=== PATIENT | male | born 1975 | race Caucasian/White ===

== ENCOUNTER 2016-09-26 05:31 | Day surgery (SDC) | payer MEDICAID ==
[2016-09-25 08:55] LABS: HEMATOCRIT 44.8 % (42.0-54.0); HEMOGLOBIN 15.4 g/dL (13.5-17.5); MCH 29.8 pg (26.0-34.0); MCHC 34.4 g/dL (31.0-37.0); MCV 86.8 fL (80.0-100.0); MEAN PLATELET VOLUME 10.6 fL (7.4-10.4); RBC 5.16 10x6/uL (4.20-6.10); RDW 13.5 % (11.5-14.5); WBC 8.6 10x3/uL (4.8-10.8)
[2016-09-25 09:16] LABS: CALC OSMOLALITY 274 mosm/kg (275-300); CALCIUM 9.1 mg/dL (8.5-10.1); CHLORIDE - SERUM 99 mmol/L (98-107); GLUCOSE 138 mg/dL (74-106); POTASSIUM - SERUM 3.6 mmol/L (3.5-5.1); SODIUM 136 mmol/L (136-145); UREA NITROGEN 14 mg/dL (7-18); eGFR NON AFRICAN AMERICAN 88 mL/min (90-120)
[~2016-09-26] VITALS: Ht 188 cm; Wt 117.9 kg
[~2016-09-26 05:31] MED LIST: GLUCOPHAGE500 MG PO; KLONOPIN1 MG PO; OMEPRAZOLE20 M1 PO; PERCOCET 10/3251 TA1 PO
[2016-09-26 08:52] VITALS: BP 150/82; Ht 188 cm; Wt 117.9 kg
[2016-09-26] MEDS ORDERED: DEMEROL50 MG PO (10:53)
--- NOTE | 2016-09-26 11:11 | NUR ---
VANCOMYCIN 1GM INFUSING. SLING APPLIED TO ARM IN PACU. PT OFFERED PAIN MEDICATION, PT REFUSED. STATED "NOT THAT BAD"
--- NOTE | 2016-09-26 15:39 | NUR ---
1215 IV DC WITH CATHER TIP INTACT
--- NOTE | 2016-09-30 14:52 | OP ---
PATIENT NAME: YOANNA FAJARDO MEDICAL RECORD: [id number] :76 LOCATION:[facility] ADMISSION DATE: SURGEON: SWAPNIL MCGRATH MD DATE OF OPERATION: 09/26/2016 PREOPERATIVE DIAGNOSES: Rotator cuff tear of the left shoulder with impingement syndrome and acromioclavicular arthritis. POSTOPERATIVE DIAGNOSES: Rotator cuff tear of the left shoulder with impingement syndrome and acromioclavicular arthritis. PROCEDURES: 1. Arthroscopic rotator cuff repair of the left shoulder. 2. Arthroscopic distal clavicle excision of the left shoulder. 3. Arthroscopic subacromial decompression, acromioplasty and bursectomy of the left shoulder. SURGEON: Swapnil Mcgrath MD ANESTHESIA: General. INTRAOPERATIVE COMPLICATIONS: None. SUMMARY OF PATHOLOGIC FINDINGS: As predicted with the MRI, the patient had a rotator cuff tear of the supraspinatus tendon distal aspect. Furthermore, the patient had a downward sloping acromion with excoriation of the coracoacromial ligament as well as acromioclavicular arthritis. OPERATIVE SUMMARY IN DETAIL: After obtaining the appropriate preoperative orthopedic surgical consents as well as anesthetic consultation, evaluation and clearance, the patient was brought to the operating room and placed on the operating table in supine position. After adequate general laryngeal mask was administered, the patient was placed in a right lateral decubitus position. All pressure points were well padded to include down leg peroneal pad as well as axillary roll. The patient was held firmly to the operating room table using the vacuum pack suction system. Left upper extremity and shoulder were prepped and draped in a routine sterile fashion. The arm was held in the Arthrex traction boom at 30 degrees of forward flexion, 30 degrees of abduction with 10 pounds of traction laterally. Arthroscopy was established in the glenohumeral joint from a posterior portal. Anterior portal was established in the anterior safe interval. Diagnostic arthroscopy did show the above findings. Attention was at this point turned to the subacromial space. Accessory lateral portal was created. [place] tissue ablation system was utilized to denude the undersurface of the acromion of all soft tissue elements and released coracoacromial ligament. Barrel bur was then used to perform acromioplasty at the level of the acromioclavicular joint. At this point, through a separate arthroscopic portal anterior, distal clavicle was excised 1 cm through a separate incision. Having completed this, attention then turned to the rotator cuff tear. Debridement decortication was carried out. A single #2 FiberTape was placed in an inverted mattress style suture. It was anchored laterally with a 4.75 SwiveLock from Arthrex. Having completed this, arthroscopy portals were closed in routine interrupted fashion using 4-0 Prolene. Sterile dressings were applied. The patient was awakened and taken to the recovery room in stable condition. All final needle and sponge counts were correct. OPERATIVE REPORT [id number] TANAYOANNARoel ART TRANSINT:[id number] Voice Confirmation ID: [id number] DOCUMENT ID: [id number] ALCIDES OSBORN, SWAPNIL RUBIO at 1452 CC: [id number] DICTATION DATE: 09/26/16 1057 LICENSED OPTICIAN: 09/26/16 1114 [facility] 09/26/[address] [address]
== END 2016-09-26 12:30 | disposition home or self-care (01) ==
LOC: D.OPS 05:31 → D.PAN 09:15 → D.OPS 10:15 → D.PAN 11:15 → D.OPS 12:30
PROVIDERS: Anesthesiology
DX: M75.102 Unspecified rotator cuff tear or rupture of left shoulder, not specified as traumatic (principal); M75.42 Impingement syndrome of left shoulder; M13.812 Other specified arthritis, left shoulder

== ENCOUNTER → 2017-01-14 15:04 | Outpatient (CLI) | payer MEDICAID ==
[2016-09-26 08:52] VITALS: BMI 33.4
[~2017-01-14 15:04] MED LIST changes: +DEMEROL50 MG PO
== END | disposition home or self-care (01) ==
LOC: D.US 01-10 13:30
DX: N50.89 Other specified disorders of the male genital organs (principal)

== ENCOUNTER → 2017-01-17 10:42 | Outpatient (CLI) | payer MEDICAID ==
[2016-09-26 08:52] VITALS: BMI 33.4
== END | disposition home or self-care (01) ==
LOC: D.LAB 10:15 → D.NM 10:30 → D.LAB 10:42
DX: M54.6 Pain in thoracic spine (principal)

== ENCOUNTER → 2017-04-24 13:20 | Outpatient (CLI) | payer MEDICAID ==
[2016-09-26 08:52] VITALS: BMI 33.4
== END | disposition home or self-care (01) ==
LOC: D.MRI 04-15 15:00
DX: M51.9 Unspecified thoracic, thoracolumbar and lumbosacral intervertebral disc disorder (principal)

== ENCOUNTER 2017-05-02 22:17 | Emergency (ER) | payer MEDICAID ==
[2016-09-26 08:52] VITALS: BMI 33.4
== END 2017-05-03 01:23 | disposition home or self-care (01) ==
LOC: D.ER 22:17
DX: M54.6 Pain in thoracic spine (principal); A69.20 Lyme disease, unspecified; G40.909 Epilepsy, unspecified, not intractable, without status epilepticus; M51.26 Other intervertebral disc displacement, lumbar region; F17.200 Nicotine dependence, unspecified, uncomplicated

== ENCOUNTER 2018-03-03 19:26 | Emergency (ER) | payer MEDICAID ==
[~2018-03-03] VITALS: Ht 188 cm; Wt 104.5 kg
[2018-03-03 19:36] VITALS: Ht 188 cm; Wt 104.5 kg
[2018-03-03] MEDS ORDERED: NORVASC10 MG PO (19:38)
[2018-03-03] MEDS ORDERED: VOLTAREN75 MG PO (21:53)
[2018-03-03] MEDS ORDERED: MEDROL DOSE PACK4 MG PO (21:53)
[2018-03-03 22:21] VITALS: BP 132/89
== END 2018-03-03 22:21 | disposition home or self-care (01) ==
LOC: D.ER 19:26
DX: L25.9 Unspecified contact dermatitis, unspecified cause (principal); S39.012A Strain of muscle, fascia and tendon of lower back, initial encounter; X58.XXXA Exposure to other specified factors, initial encounter; Y93.89 Activity, other specified; Y92.89 Other specified places as the place of occurrence of the external cause; E11.9 Type 2 diabetes mellitus without complications; I10 Essential (primary) hypertension; F17.200 Nicotine dependence, unspecified, uncomplicated

== ENCOUNTER 2018-06-18 05:20 | Day surgery (SDC) | payer MEDICARE ==
[2018-06-16 11:47] LABS: HEMATOCRIT 46.1 % (42.0-54.0); HEMOGLOBIN 16.3 g/dL (13.5-17.5); MCH 32.2 pg (26.0-34.0); MCHC 35.4 g/dL (31.0-37.0); MCV 91.1 fL (80.0-100.0); MEAN PLATELET VOLUME 10.4 fL (7.4-10.4); RBC 5.06 10x6/uL (4.20-6.10); RDW 13.3 % (11.5-14.5); WBC 8.2 10x3/uL (4.8-10.8)
[2018-06-16 12:12] LABS: CALC OSMOLALITY 272 mosm/kg (275-300); CALCIUM 9.3 mg/dL (8.5-10.1); CARBON DIOXIDE 28.8 mmol/L (21.0-32.0); CHLORIDE - SERUM 100 mmol/L (98-107); CREATININE - SERUM 0.9 mg/dL (0.6-1.3); GLUCOSE 104 mg/dL (74-106); POTASSIUM - SERUM 3.9 mmol/L (3.5-5.1); SODIUM 137 mmol/L (136-145); UREA NITROGEN 11 mg/dL (7-18); eGFR NON AFRICAN AMERICAN > 90 mL/min (90-120)
[~2018-06-18] VITALS: Ht 188 cm; Wt 99.8 kg
--- NOTE | ~2018-06-18 | OP ---
PATIENT NAME: YOANNA FAJARDO MEDICAL RECORD: [id number] :76 LOCATION:[facility] ADMISSION DATE: SURGEON: SWAPNIL MCGRATH MD DATE OF OPERATION: 06/18/2018 PREOPERATIVE DIAGNOSIS: Impingement syndrome of the right shoulder. POSTOPERATIVE DIAGNOSIS: Impingement syndrome of the right shoulder. PROCEDURES: 1. Right shoulder arthroscopy with arthroscopic distal clavicle excision done through separate incision -- 1 cm. 2. Arthrex subacromial decompression, acromioplasty and bursectomy. SURGEON: Swapnil Mcgrath MD ANESTHESIA: General. INTRAOPERATIVE COMPLICATIONS: None. SUMMARY OF PATHOLOGIC FINDINGS: The patient did indeed have impingement with inferior osteophytic spurring and grade IV chondromalacia of the distal clavicle. The rotator cuff had superior attritional changes, but no evidence of full thickness tearing. OPERATIVE SUMMARY IN DETAIL: After obtaining the appropriate preoperative orthopedic surgery consent as well as anesthetic consultation, evaluation and clearance, the patient was brought to the operating room and placed on the operating table in supine position. After general laryngeal mask airway was administered, the patient was placed in a left lateral decubitus position. All pressure points were well padded to include down leg peroneal pad as well as axillary roll. The patient was held firmly to the operating table using the vacuum pack suction system. Right upper extremity and shoulder were then prepped and draped in routine sterile fashion. The arm was held in the Arthrex traction boom at 30 degrees of forward flexion, 30 degrees of abduction, 10 pounds of traction laterally. Arthroscopy was established in the glenohumeral joint from the posterior portal and anterior portal through anterior safe interval. Diagnostic arthroscopy of the glenohumeral joint showed mild labral fraying, but no evidence of SLAP lesion. Attention was then turned to the subacromial space. In the subacromial space, accessory lateral portal was created through which the Arthrex [place] tissue ablation system was utilized to denude the undersurface of the acromion of all soft tissue elements and release the coracoacromial ligament. A 5-0 barrel bur was used for acromioplasty at the level of acromioclavicular joint. Having completed this, a separate anterior arthroscopic portal was utilized under direct arthroscopic visualization, distal clavicle was excised for 1 cm. Having completed this, arthroscopy portals were closed in routine interrupted fashion using 4-0 Prolene. Sterile dressings were applied. The patient was awakened and taken to the recovery room in stable condition. All final needle and sponge counts were correct. TRANSINT:[id number] Voice Confirmation ID: [id number] DOCUMENT ID: [id number] OPERATIVE REPORT [id number] YOANNA FAJARDO MD, SWAPNIL RUBIO at 0843 CC: [id number] DICTATION DATE: 06/18/18 1412 MENDER HAND: 06/18/18 1421 [facility] 06/18/18 [id number] [place] [address]
[~2018-06-18 05:20] MED LIST changes: +HYSINGLA ER20 MG PO; +MEDROL DOSE PACK4 MG PO; +NORVASC10 MG PO; +PREVACID30 MG PO; +REQUIP5 MG PO; +SOMA350 MG PO; +VOLTAREN75 MG PO; +ZYRTEC10 MG PO
[2018-06-18 06:41] VITALS: BP 156/88; Ht 188 cm; Wt 99.8 kg
[2018-06-18] MEDS ORDERED: NORCO 10-325 TA1 TAB PO (09:25)
== END 2018-06-18 11:10 | disposition home or self-care (01) ==
LOC: D.OPS 05:20 → D.PAN 08:30 → D.OPS 08:30
PROVIDERS: Anesthesiology
DX: M75.41 Impingement syndrome of right shoulder (principal); Z01.812 Encounter for preprocedural laboratory examination

== ENCOUNTER → 2020-06-16 09:33 | Outpatient (CLI) | payer OTHER ==
[2018-06-18 06:41] VITALS: BMI 28.3
[~2020-06-16 09:33] MED LIST changes: +NORCO 10-325 TA1 TAB PO
== END | disposition home or self-care (01) ==
LOC: D.MRI 09:33
PROVIDERS: ATTEND Orthopaedic Surgery
DX: M75.122 Complete rotator cuff tear or rupture of left shoulder, not specified as traumatic (principal)

== ENCOUNTER → 2020-11-27 14:20 | Outpatient (CLI) | payer OTHER ==
[2020-07-13 07:26] VITALS: BMI 27.1
[~2020-11-27 14:20] MED LIST changes: +OXYCODONE HCL E20 MG PO; +OXYCODONE HCL10 MG PO; +XYZOL PO; +ZANAFLEX4 MG PO
== END | disposition home or self-care (01) ==
LOC: D.LAB 14:20
PROVIDERS: ATTEND Allergy & Immunology
DX: J32.9 Chronic sinusitis, unspecified (principal)

== ENCOUNTER 2020-11-30 07:05 | Day surgery (SDC) | payer OTHER ==
[~2020-11-30] VITALS: Ht 188 cm; Wt 99.8 kg
--- NOTE | ~2020-11-30 | OP ---
PATIENT NAME: YOANNA GARCIA MEDICAL RECORD: [id number] :76 LOCATION:[facility] ADMISSION DATE: SURGEON: JW RUSSO MD DATE OF OPERATION: 11/30/2020 PREOPERATIVE DIAGNOSES: 1. Left shoulder pain. 2. Recurrent rotator cuff tear. POSTOPERATIVE DIAGNOSES: 1. Left shoulder pain. 2. Recurrent rotator cuff tear. PROCEDURE PERFORMED: Left shoulder scope with subacromial decompression and rotator cuff repair. INDICATIONS FOR THE PROCEDURE: Mr. Garcia is a 45-year-old male with history of left rotator cuff repair in June per Dr. Amaro. He had been working with physical therapy recently when he felt a pop in his shoulder. An MRI shows evidence of increased signal around the anterior aspect of the repair. He has elected to proceed with surgery for shoulder arthroscopy with repair and indicated procedures. Risks, benefits and alternatives of surgery were discussed with the patient and consent was obtained. DESCRIPTION OF PROCEDURE: The patient was met in the holding area where his identity and confirmation of procedure was performed. The left upper extremity was marked. He was taken to the operating room. He was placed supine on the operating table. Anesthesia was administered. He was then positioned in the right lateral decubitus position. Extremities were positioned and padded appropriately. Left upper extremity was prepped and draped in the usual sterile fashion and the arm was placed in skeletal traction. The patient received preoperative antibiotics and timeout was performed before initiating the case. On initiation of the case, a shoulder arthroscopy was performed. The subacromial space was infiltrated with 20 mL of 0.25% Marcaine with epinephrine. We then made our posterior portal, inserted the camera into the joint and placed our anterior portal through the rotator cuff interval under direct visualization. Diagnostic shoulder arthroscopy was performed. There was some inflammation of the tissues around the shoulder. Evidence of previous long head biceps tenotomy. The labrum was in good condition. The sutures were visible from previous rotator cuff tear and there was slight liftoff at the edge of the cuff, but no evidence of full-thickness tears. We then moved to the subacromial space. In the subacromial space, there was some bursa posteriorly that was debrided and we were then able to visualize the rotator cuff repair. There was some inflammation at the edge of the rotator cuff, but the sutures appeared to be well fixed again with no evidence of full thickness tearing. Tissue did appear to be thin, extending around the greater tuberosity. We therefore elected to perform Regeneten patch placement in the rotator cuff repair. We then made an incision over the lateral aspect of the acromion in line with the previous incision. We dissected down through the skin and subcutaneous tissues and through the deltoid to the subacromial space. The rotator cuff was easily visualized. A [place] all-suture speed anchor was placed in the central portion of the cuff around the previous repairs. It was loaded with 1.2 mm tape and strands of the tape were placed through the tissue posterior and anterior to help reapproximate the tendon tissues and provide a little extra tension of the rotator cuff. This was performed posterior and anterior and then tied down OPERATIVE REPORT [id number] YOANNA GARCIA securely. We then placed a Regeneten graft over this area of the previous repair, anchoring it to the tendon and then the bone to complete our fixation. Before and after images were obtained. The wound was then irrigated thoroughly with saline. The deltoid fascia was closed with running Vicryl suture. The subcutaneous tissue was closed with 2-0 Vicryl and the skin was closed with nylon. A sterile dressing was placed. The patient was placed into a sling, turned back over to anesthesia where he was awakened, extubated, and taken to recovery room in stable condition. POSTOPERATIVE PLAN: The patient is going to return home with his family today. He needs to remain in the sling at all times with instructions for no shoulder range of motion. We will see him back in clinic in 2 weeks. COMPLICATIONS: None. ESTIMATED BLOOD LOSS: 5 mL. ANESTHESIA: General with peripheral nerve block. TRANSINT:[id number] Voice Confirmation ID: [id number] DOCUMENT ID: [id number] JW RUSSO MD CC: [id number] DICTATION DATE: 11/30/20 1233 CABLE WEAVER: 11/30/20 [id number] [place] [address]
[2020-11-30 07:45] VITALS: BP 135/75; Ht 188 cm; Wt 99.8 kg
--- NOTE | 2020-11-30 13:32 | NUR ---
PT STATES HE WANTS TO GET UP TO URINATE AND WANTS TO GO AHEAD AND GET DRESSED. ASSISTED PT TO GET DRESSED AND PLACED SLING TO LEFT ARM. PT TO BATHROOM AND VOIDED.
--- NOTE | 2020-11-30 14:10 | NUR ---
DISCHARGE INSTRUCTIONS REVIEWED WITH PT. PT HAS RX FOR HYDROCODONE BUT STATES HE CANNOT TAKE HYDROCODONE SINCE HE IS ON [place]. NOTIFIED DR RUSSO BUT HE IS STILL IN A CASE. PER LUIS CAMPBELL IN OR ROOM WITH DR RUSSO, DR RUSSO SAID PT CAN WAIT UNTIL HE IS AVAILABLE AND HE WILL GIVE ANOTHER RX OR PT CAN COME BY HIS OFFICE TOMORROW TO GET A NEW RX. PT CHOSE TO GO BY DR RUSSO'S OFFICE TOMORROW FOR NEW RX. RX FOR HYDROCODONE DESTROYED AND PLACED IN SHRED BOX. PT VOICED UNDERSTANDING OF OTHER DC INSTRUCTIONS THAT WERE GIVEN. PT PROVIDED WITH COPY OF DC INSTRUCTIONS.
--- NOTE | 2020-11-30 14:17 | NUR ---
PT DISCHARGED VIA W/C, ACCOMPANIED BY THIS NURSE, TO POV WITH FAMILY DRIVING. ALL BELONGINGS AND DC PACKET WITH PT. NO C/O VOICED.
== END 2020-11-30 14:17 | disposition home or self-care (01) ==
LOC: D.OPS 07:05
PROVIDERS: ATTEND Orthopaedic Surgery
DX: M25.512 Pain in left shoulder (principal); M75.122 Complete rotator cuff tear or rupture of left shoulder, not specified as traumatic